=== PATIENT | male | born 2000 | race Hispanic/Latino ===

== ENCOUNTER 2025-01-24 22:54 | Emergency (ER) | payer OTHER, SELFPAY ==
[2025-01-25] MEDS ORDERED: Fluorescein Opthalmic Strip ONE (00:44)
[2025-01-25] MEDS ORDERED: Proparacaine 0.5% Opth 15 ML BOT ONE (00:44)
== END 2025-01-25 01:39 | disposition home or self-care (01) ==
LOC: ERS 22:54
DX: H10.32 Unspecified acute conjunctivitis, left eye (principal); H16.002 Unspecified corneal ulcer, left eye; E10.9 Type 1 diabetes mellitus without complications; Z79.4 Long term (current) use of insulin
CPT/HCPCS: 99283